=== PATIENT | male | born 1950 ===

== ENCOUNTER 2025-05-24 08:33 | Emergency (ER) | payer MEDICARE, OTHER ==
[~2025-05-24] VITALS: Ht 182.9 cm; Wt 68.0 kg
== END 2025-05-24 10:33 | disposition home or self-care (01) ==
LOC: ER 08:33
DX: M25.561 Pain in right knee (principal); Z86.73 Personal history of transient ischemic attack (TIA), and cerebral infarction without residual deficits
CPT/HCPCS: 73562-RT; 99283-25